=== PATIENT | male | born 1965 | race Caucasian/White ===

== ENCOUNTER 2024-06-30 06:21 | Day surgery (SDC) | payer SELFPAY ==
[2024-06-30] VITALS (7 sets, daily range): BP systolic 108–144; BP diastolic 63–84; PULSE 55–70; TEMP 98
[~2024-06-30] VITALS: Ht 167.6 cm; Wt 76.8 kg
[~2024-06-30 06:21] MED LIST: LR 1,000 ML IV SCH
[2024-06-30] MEDS ORDERED: Rocuronium 50 MG/5 ML Multi-Dose VIAL ONE (06:42)
[2024-06-30] MEDS ORDERED: fentaNYL 50 MCG/ML 5 ML VIAL ONE (06:42)
[2024-06-30] MEDS ORDERED: dexAMETHasone 10 MG/ML VIAL ONE (06:44)
[2024-06-30] MEDS ORDERED: NS 10 ML IV ONE (06:44)
[2024-06-30] MEDS ORDERED: Glycopyrrolate 0.2 MG/ML 1 ML VIAL ONE (06:44)
[2024-06-30] MEDS ORDERED: Ondansetron 4 MG/2 ML VIAL ONE (06:44)
[2024-06-30] MEDS ORDERED: Ketorolac 30 MG/ML VIAL ONE (06:44)
[2024-06-30] MEDS ORDERED: droPERidol 2.5 MG/ML 2 ML VIAL IV PRN (07:45)
[2024-06-30] MEDS ORDERED: hydrALAZINE 20 MG/ML 1 ML VIAL IV PRN (07:45)
[2024-06-30] MEDS ORDERED: fentaNYL 50 MCG/ML 1 ML SYRINGE/VIAL [PACU/SDC ONLY] IV PRN (07:45)
[2024-06-30] MEDS ORDERED: Ondansetron 4 MG/2 ML VIAL IV PRN ×2 (07:45→08:15)
[2024-06-30] MEDS ORDERED: HYDROmorphone 1 MG/1 ML SYRINGE [PACU/SDC ONLY] IV PRN (07:45)
[2024-06-30] MEDS ORDERED: Ibuprofen 600 MG TAB PO PRN (08:15)
--- NOTE | 2024-06-30 10:00 | NUR ---
PATIENT RETURNED TO [facility] VIA CART, ALERT AND ORIENTED X3. DENIES NAUSEA AND SHORTNESS OF BREATH. RATES PAIN 2/10 TOLERABLE TO ABDOMEN. WARM BLANKET IN PLACE. BREATHING REGULAR/UNLABORED ON ROOM AIR. SKIN WARM AND DRY. NURSE HANDOFF COMPLETED IN ROOM WITH INSPECTION OF ABDOMEN. 3 BANDAIDS PRESENT TO ABDOMEN. ALL 3 BANDAIDS CLEAN, DRY AND INTACT. JOCKSTRAP IN PLACE. PATIENT HAS NO COMPLAINTS. SEE CHART FOR VITAL SIGNS. PATIENT HAD WATER AND JELLO. BOTH TOLERATED WELL, NO DYSPHAGIA. CALL LIGHT IN REACH. SISTER, PRIYA, PRESENT IN ROOM.
--- NOTE | 2024-06-30 10:51 | NUR ---
PATIENT REPORTS ABDOMINAL PAIN. DISCUSSED PAIN MANAGMENT OPTIONS. SEE EMAR FOR MEDICATION ADMINISTERED. PATIENT IS TOLERATING FOOD AND DRINK, NO NAUSEA.
--- NOTE | 2024-06-30 11:20 | NUR ---
1100: DISCHARGE TEACHING COMPLETED WITH PRINTED EDUCATION AND INSTRUCTIONS SENT HOME WITH PATIENT AND PRIYA. BOTH VERBALIZED UNDERSTANDING OF EDUCATION/INSTRUCTIONS. 1110: PATIENT RATES PAIN TOLERABLE 2/10. ALL 3 ABDOMINAL BANDAIDS CLEAN, DRY AND INTACT. RIGHT HAND IV REMOVED. GAUZE AND COBAN PLACED OVER SITE. 1118: PATIENT AMBULATED WITH STEADY GAIT TO RESTROOM. 1120: PATIENT DISCHARGED HOME WITH SISTER, PRIYA, TRANSPORT.
[2024-06-30] MEDS ORDERED: NORCO 325 MG-51 TAB PO (11:21)
== END 2024-06-30 11:20 | disposition home or self-care (01) ==
LOC: SDCO 06:21
DX: K40.90 Unilateral inguinal hernia, without obstruction or gangrene, not specified as recurrent (principal)
CPT/HCPCS: C1781; J0690; J1100; J1885; J2405; J2704; J3010; J7120